=== PATIENT | female | born 1995 | race Hispanic/Latino ===

== ENCOUNTER 2016-05-19 08:03 | Emergency (ER) | payer OTHER ==
[~2016-05-19] VITALS: Ht 162.6 cm; Wt 67.6 kg
[2016-05-19] MEDS ORDERED: PRENTAB40 PO (08:15)
[2016-05-19 09:10] VITALS: BP 107/67
== END 2016-05-19 09:18 | disposition admitted as inpatient to this hospital (09) ==
LOC: M ED 08:43
DX: Z04.1 Encounter for examination and observation following transport accident (principal); V43.52XA Car driver injured in collision with other type car in traffic accident, initial encounter; Y92.410 Unspecified street and highway as the place of occurrence of the external cause; Y93.9 Activity, unspecified; Y99.9 Unspecified external cause status; Z3A.29 29 weeks gestation of pregnancy

== ENCOUNTER 2016-05-19 09:27 | Outpatient (CLI) | payer OTHER ==
[~2016-05-19] VITALS: Ht 162.6 cm; Wt 64.0 kg
[~2016-05-19 09:27] MED LIST: PRENTAB40 PO
[2016-05-19 09:33] VITALS: BP 111/65
== END 2016-05-19 10:28 | disposition home or self-care (01) ==
LOC: M LDO 09:27
PROVIDERS: ATTEND Obstetrics & Gynecology
DX: Z04.1 Encounter for examination and observation following transport accident (principal); V43.52XA Car driver injured in collision with other type car in traffic accident, initial encounter; Y92.410 Unspecified street and highway as the place of occurrence of the external cause; Y93.9 Activity, unspecified; Y99.9 Unspecified external cause status; Z3A.29 29 weeks gestation of pregnancy

== ENCOUNTER 2016-07-21 00:07 | Outpatient (CLI) | payer OTHER | END 2016-07-21 02:50 | disposition home or self-care (01) | LOC: M LDO 00:07 | PROVIDERS: ATTEND Obstetrics & Gynecology | DX: O62.0 Primary inadequate contractions (principal); Z3A.37 37 weeks gestation of pregnancy ==

== ENCOUNTER 2016-07-22 19:25 | Inpatient (IN) | payer OTHER ==
[~2016-07-22] VITALS: Ht 162.6 cm; Wt 75.0 kg
[2016-07-22] MEDS ORDERED: PENICILLIN G POTASSIUM IV 5 MU in D5W MINI-BAG PLUS 100 ML IV STA (19:50)
[2016-07-22] MEDS ORDERED: LR 1,000 ML IV SCH (19:50)
[2016-07-22] MEDS ORDERED: LACTATED RINGER'S 1000 ML IV ONE (20:00)
[2016-07-22 20:09] LABS: MEAN CORPUSCULAR HEMOGLOBIN 28.5 pg (27.0-33.0); MEAN CORPUSCULAR HGB CONC 32.8 g/dl (32.0-36.5); MEAN CORPUSCULAR VOLUME 86.7 fl (80.0-96.0); RED CELL DISTRIBUTION WIDTH 13.6 % (11.5-14.5)
[2016-07-22] MEDS ORDERED: FENTANYL 2MCG/ML ROPIVACAINE 0.2% IN 0.9% NACL 200ML IVBAG As Ordered ONE (20:19)
[2016-07-22] MEDS ORDERED: ePHEDrine SULFATE 25 MG/5 ML(5MG/ML) SYRINGE IV PRN (20:50)
[2016-07-22] MEDS ORDERED: EPIDURAL COMMENT XX SCH (20:50)
[2016-07-22] MEDS ORDERED: EPIDURAL/PCA KEYS XX PRN (20:50)
[2016-07-22] MEDS ORDERED: ONDANSETRON 4MG/2ML VIAL (J2405) IV PRN (20:50)
[2016-07-22] MEDS ORDERED: NALOXONE INJ 0.4 MG/1 ML VIAL (J2310) IV PRN (20:50)
[2016-07-22] MEDS ORDERED: LACTATED RINGER'S 1000 ML IV PRN (20:50)
[2016-07-22] MEDS ORDERED: FENTANYL/ROPIVACAINE/NACL BAG 200 ML EPIDURAL SCH (20:50)
[2016-07-22] MEDS ORDERED: REFRIGERATOR IV KEYS XX PRN (20:50)
[2016-07-22] MEDS ORDERED: diphenhydrAMINE INJ 50MG/ML VIAL (J1200) IV PRN (20:50)
[2016-07-23] VITALS (8 sets, daily range): BP systolic 103–127; BP diastolic 55–76
[2016-07-23] MEDS ORDERED: PENICILLIN G POTASSIUM IV 2.5 MU in D5W 100 ML IV SCH ×2
[2016-07-23] MEDS ORDERED: BUPIVACAINE HCL 0.25% 10 ML VIAL As Ordered ONE (01:03)
[2016-07-23] MEDS ORDERED: BICITRA 30ML SOLN UDC As Ordered ONE (01:04)
[2016-07-23] MEDS ORDERED: ceFAZolin 2 GM/D5W 50 ML IV BAG (J0690) As Ordered ONE (01:04)
[2016-07-23] MEDS ORDERED: ONDANSETRON 4MG/2ML VIAL (J2405) IV PRN (01:14)
[2016-07-23] MEDS ORDERED: METOCLOPRAMIDE INJ 10MG/2ML VIAL (J2765) IV PRN ×2 (01:14→02:15)
[2016-07-23] MEDS ORDERED: NALBUPHINE HCL 10 MG/ML AMP (J2300) IV PRN (01:14)
[2016-07-23] MEDS ORDERED: NALOXONE INJ 0.4 MG/1 ML VIAL (J2310) IV PRN ×2 (01:14)
[2016-07-23] MEDS ORDERED: BUPIVACAINE HCL 0.25% 10 ML VIAL SC ONE (01:15)
[2016-07-23] MEDS ORDERED: BICITRA 30ML SOLN UDC PO ONE (01:15)
[2016-07-23] MEDS ORDERED: OXYTOCIN INJ 10 UNITS/ML VIAL (J2590) As Ordered ONE (01:37)
[2016-07-23] MEDS ORDERED: ONDANSETRON 4MG/2ML VIAL (J2405) As Ordered ONE (01:37)
[2016-07-23] MEDS ORDERED: KETOROLAC 60 MG/2 ML VIAL (J1885) As Ordered ONE (01:37)
[2016-07-23] MEDS ORDERED: MORPHINE PRES-FREE INJ 10 MG/10 ML VIAL (J2274) As Ordered ONE (01:43)
[2016-07-23 01:46] LABS: CORD GAS ABE V -3.8; CORD GAS HCO3 V 24.1 MEQ/L; CORD GAS O2 SAT V 49.4 %; CORD GAS PCO2 V 53.8 mmHg; CORD GAS PH V 7.269 UNITS; CORD GAS PO2 V 23.6 mmHg; CORD GAS SBC V 20.1 MEQ/L; CORD GAS TCO2 V 25.7 MEQ/L
[2016-07-23 01:48] LABS: CORD GAS ABE A -2.1; CORD GAS HCO3 A 28.1 MEQ/L; CORD GAS PCO2 A 72.1 mmHg; CORD GAS PH A 7.208 UNITS; CORD GAS PO2 A 12.3 mmHg; CORD GAS TCO2 A 30.3 MEQ/L
[2016-07-23 01:50] LABS: CORD GAS O2 SAT A < 15.0 %
[2016-07-23] MEDS ORDERED: OXYTOCIN DRIP 30 UNITS in APPROPRIATE DILUENT 1 EA IV SCH (02:14)
[2016-07-23] MEDS ORDERED: fentaNYL 100 MCG/2 ML INJECTION (J3010) IV PRN (02:15)
[2016-07-23] MEDS ORDERED: MEASLES,MUMPS,RUBELLA VACCINE INJ (MMR-II) (90707) SC SCH (02:15)
[2016-07-23] MEDS ORDERED: ANUSOL HC CREAM 30GM TOP PRN (02:15)
[2016-07-23] MEDS ORDERED: RHOGAM 300 MCG (1500 IU) INJ (J2790) IM SCH (02:15)
[2016-07-23] MEDS ORDERED: LR 1,000 ML IV SCH (02:15)
[2016-07-23] MEDS ORDERED: OXYTOCIN INJ 10 UNITS/ML VIAL (J2590) IV ONE (02:15)
[2016-07-23] MEDS ORDERED: PERCOCET 5MG/325MG TAB PO PRN (02:15)
[2016-07-23] MEDS ORDERED: MOM 30ML SUSPENSION UDC PO PRN (02:15)
[2016-07-23] MEDS ORDERED: MEPERIDINE INJ 25 MG/ML VIAL (J2175) IV PRN (02:15)
[2016-07-23] MEDS ORDERED: DOCUSATE SODIUM 100 MG CAP PO PRN (02:15)
[2016-07-23] MEDS: LR 1,000 ML IV SCH ×2 (05:15→13:15)
--- NOTE | 2016-07-23 09:02 | HPE ---
DATE OF ADMISSION: 07/22/2016 This lady is a 20-year-old, 1, para 0, last menstrual period (LMP) 10/30/2016, estimated date of confinement (EDC) 08/06/2016, at 37 and 6, in active labor, leaking, Group B streptococcus (GBS) positive. Labs are B+, HIV negative, hepatitis negative, RPR negative, rubella immune. Varicella immune. Urine is GBS positive. Gonorrhea and chlamydia were negative. 1-hour glucose 90. CF was declined and quad testing was declined. On examination today, we have a female in distress. Symphysis fundus height is 37, vertex, 100% effaced, -3 station, bulging membranes with a small leak, occiput transverse, 4-5 cm, -2 station, category 1 strip, contractions every 2-4 minutes. Blood pressure 134/84, respirations are 18. Pulse is 87. Temperature is 97.8. Urine 1.015, pH 7 and +1 leukocyte esterase. Rest of the examination is normal. She is normocephalic, atraumatic. Neck full range of motion. Pupils equal and reactive to light. Distal pulses are symmetric. No evidence of deep venous thrombosis (DVT), pulmonary embolism (PE) or superficial phlebitis. No costovertebral angle (CVA) tenderness. No wheezes or rhonchi. Lungs are clear to bases. Symphysis fundus height is appropriate. Four quadrant bowel sounds are noted. Nontender uterus. No rashes, lesions or pruritus. She does have tattoos. No arthralgia, myalgia. No complaints of cough, wheezes, shortness of breath or dyspnea on exertion. No chest pain. No bleeding. Neuro complete. No incontinency, urgency or frequency. No nausea, vomiting, diarrhea or constipation. No diabetic issues. She had a rash previous in her , which resolved. She has no gyne history. She is under 21. No Pap smear. Past medical history unremarkable. Surgical unremarkable. Family history is noncontributory. She does not smoke, drink, abuse drugs, and there is no domestic violence. She is to a soldier. In summary, we have a 37 and 6 week gestation, in active labor, bulging membranes, GBS positive. Plan of management is GBS prophylaxis, epidural at the appropriate interval.
[2016-07-23] MEDS: PRENATAL VITAMIN TAB PO SCH (09:27)
[2016-07-23] MEDS: IBUPROFEN 800 MG TAB PO SCH ×2 (10:16→17:58)
--- NOTE | 2016-07-23 18:03 | RO ---
DATE OF PROCEDURE: 07/23/2016 PREOPERATIVE DIAGNOSIS: Non-reassuring heart tones remote from delivery, persistent occiput posterior. POSTOPERATIVE DIAGNOSIS: Non-reassuring heart tones remote from delivery, persistent occiput posterior. OPERATION PERFORMED: Urgent section. SURGEON: Hakeem Morales M.D. DESK PENS ASSEMBLER: Dr. Juan ANESTHESIA: Epidural. ESTIMATED BLOOD LOSS: 400 mL. DESCRIPTION OF PROCEDURE: Under adequate epidural anesthesia, prepped, draped in the supine position, Pfeiffer catheter bladder draining clear urine. Sequentials on board and Ancef 2 grams intravenous (IV) pre-incision cut. This lady had non-reassuring heart tones when she was 6 cm dilated. We gave her an hour and she still had non-reassuring heart tones and despite IV boluses of fluid, changing position, we could not change the pattern of the monitor strip. We did have with good variability, but he still had persistent late. Therefore, a Pfannenstiel incision was made two fingerbreadths above symphysis pubis passing through abdominal layers securing hemostasis. Opening the peritoneal cavity, the bladder reflected well anteriorly. We had lot of amniotic fluid which was clear. POP position, live male infant, 3218 grams, 7 pounds 2 ounces. of 9 and 9 and 1 and 5 minutes respectfully. Arterial pH 7.20, base excess -2.1, venous pH 7.26, base excess 3.8. The placenta was manually removed. Three vessels, membranes, and tissues intact. Uterus contracted well down on Pitocin. We swept the uterus for membranes. The lower segment was oversewn in the usual fashion. Reperitonealization was performed. She had two-layer closure. Ovaries and tubes appeared to be normal. With instrument and pad count correct the abdomen was closed running stitch through the peritoneum, same for the fascia, interrupted subcu Dexon to the skin. Marcaine 0.25% 10 mL and Telfa and spray. The patient was taken back to recovery in good condition.
[2016-07-24 01:52] VITALS: BP 129/71
[2016-07-24] MEDS: IBUPROFEN 800 MG TAB PO SCH ×3 (02:00→18:00)
[2016-07-24] MEDS: oxyCODONE 5MG TAB PO PRN ×3 (02:17→23:15)
[2016-07-24 05:29] VITALS: BP 124/62
[2016-07-24] MEDS ORDERED: OXYTOCIN INJ 10 UNITS/ML VIAL (J2590) As Ordered ONE (08:59)
[2016-07-24] MEDS: PRENATAL VITAMIN TAB PO SCH (09:00)
[2016-07-24 09:27] LABS: MEAN CORPUSCULAR HEMOGLOBIN 28.5 pg (27.0-33.0); MEAN CORPUSCULAR HGB CONC 32.1 g/dl (32.0-36.5); MEAN CORPUSCULAR VOLUME 88.8 fl (80.0-96.0); RED CELL DISTRIBUTION WIDTH 14.1 % (11.5-14.5); WHITE BLOOD COUNT 14.8 K/mm3 (4.0-10.0)
--- NOTE | 2016-07-24 10:05 | IPNPDOC ---
Text Note Date of Service The patient was seen on 07/24/16. NOTE pod1 S/P pcd BY dR Zepeda YESTERDAY EARLY am. States feeling well, no severe pain issues, no CP/SOB/LP. VB slowing and bonding well, nursing OK. VSS UT at -2 Inc CDI, bandage removed CBC this AM appropr a/p: Doing well. Likely d/c tomorrow. Sessions Shanel CARRION, I+O Shanel PICHARDO I+O Laboratory Tests 07/24/16 09:18 Red Blood Count 3.18 L, Mean Corpuscular Volume 88.8, Mean Corpuscular Hemoglobin 28.5, Mean Corpuscular Hemoglobin Concent 32.1, Red Cell Distribution Width 14.1 Vital Signs Date Time Temp Pulse Resp B/P (MAP) Pulse Ox O2 Delivery O2 Flow Rate FiO2 07/24/16 05:29 98.7 82 16 124/62 (82) 99 Room Air I&O- Last 24 Hours up to 6 AM 07/24/16 06:00 Output Total 2100 ml Balance -2100 ml NEFTALI ROB MD July 24, 2016 10:05
[2016-07-24 14:00] VITALS: BP 108/61
[2016-07-24 18:08] VITALS: BP 119/77
[2016-07-24 22:14] VITALS: BP 108/65
[2016-07-25] MEDS: IBUPROFEN 800 MG TAB PO SCH ×2 (02:09→09:23)
[2016-07-25 06:06] VITALS: BP 107/59
[2016-07-25] MEDS ORDERED: ANUS2.5C2 TOP (08:52)
[2016-07-25] MEDS ORDERED: MOM30SS PO (08:52)
[2016-07-25] MEDS ORDERED: IBUP-1114 PO (08:52)
[2016-07-25] MEDS ORDERED: ROXI1TAB2 PO (08:53)
[2016-07-25] MEDS: PRENATAL VITAMIN TAB PO SCH (09:22)
--- NOTE | 2016-07-25 12:08 | DSES ---
DATE OF ADMISSION: 07/22/2016 DATE OF DISCHARGE: This lady is a 21-year-old 1, now para 1, had spontaneous rupture of membranes at 37 and 6 weeks of gestation with group B streptococcus (GBS) positive, had an urgent section primary for nonreassuring heart tones and remote from delivery, a livebirth male , 7 pounds 2 ounces, 3218 grams, scores of 9 and 9 at 1 and 5 minutes, respectively. Arterial pH 7.20, base excess -2.1, venous pH 7.26, base excess -3.8. On her second day, we discussed phlebitis, cystitis, mastitis, endometritis, cellulitis, diet, exercise, pain management, perineal, breast, and wound care. Her admitting hemoglobin was 11.6, hematocrit 35.4, platelets 280. Discharge hemoglobin 9.1, hematocrit 28.2, and platelets 228. Her vital signs on discharge: Her blood pressure 107/59, respirations 18, pulse 53, temperature is 96.9. The rest of the examination was unremarkable. She is normocephalic, atraumatic. Neck: Full range of motion. Pupils equal and reactive to light. A bit pale. We discussed iron-rich foods. Her distal pulses are symmetric. No evidence of deep venous thrombosis (DVT), pulmonary embolism (PE), or superficial phlebitis. No wheezes or rhonchi. No costovertebral angle (CVA) tenderness. Uterus is 2 below. Lochia is moderate. Four quadrant bowel sounds. Incision is clean and dry and healing. No rashes, lesions, or pruritus. No arthralgia or myalgia. No complaint of cough, wheezes, shortness of breath, or dyspnea on exertion. She is controlling her pain with Toradol and ibuprofen. No chest pain. No bleeding. Neuro complete. No incontinency, urgency, or frequency. No nausea, vomiting, diarrhea, or constipation. No diabetic issues. PAST SURGICAL AND MEDICAL HISTORY: Is noncontributory. FAMILY HISTORY: Noncontributory. She does not smoke or drink or abuse drugs. There is no domestic violence. In summary, we have a 37-and 6-week gestation, delivered a livebirth male, healthy. Discharged to followup in two weeks' time in the office for incision check and 6 weeks for check, at which time she will make a decision regarding control. All questions were answered. Medications were dispensed, and the patient was discharged.
== END 2016-07-25 12:00 | disposition home or self-care (01) | DRG 766 ==
LOC: M LDO 19:25 → M LDI 19:48 → M OBS 07-23 04:30
PROVIDERS: ADMIT Obstetrics & Gynecology; ATTEND Obstetrics & Gynecology
PROC: 10D00Z1 Extraction of Products of Conception, Low, Open Approach (ICD-10-PCS; principal; 2016-07-23)
DX: O99.824 Streptococcus B carrier state complicating childbirth (principal); O76 Abnormality in fetal heart rate and rhythm complicating labor and delivery; O64.0XX0 Obstructed labor due to incomplete rotation of fetal head, not applicable or unspecified; Z3A.37 37 weeks gestation of pregnancy; Z37.0 Single live birth

== ENCOUNTER → 2017-05-23 | Outpatient (CLI) | payer OTHER | LOC: M LRY 17:24 | DX: S69.92XA Unspecified injury of left wrist, hand and finger(s), initial encounter (principal); Y92.89 Other specified places as the place of occurrence of the external cause; Y93.89 Activity, other specified; X58.XXXA Exposure to other specified factors, initial encounter; Y99.8 Other external cause status | CPT/HCPCS: 73130; G0463 ==

== ENCOUNTER 2018-02-12 18:50 | Emergency (ER) | payer SELFPAY, OTHER | END 2018-02-12 19:33 | disposition left against medical advice (07) | LOC: M ED 18:50 | DX: R68.89 Other general symptoms and signs (principal); Z53.21 Procedure and treatment not carried out due to patient leaving prior to being seen by health care provider ==